=== PATIENT | female | born 1995 | race Caucasian/White ===

== ENCOUNTER 2021-04-23 15:06 | Emergency (ER) | payer SELFPAY ==
[2021-04-23 15:10] VITALS: BP 130/76; PULSE 99; RESP 18; TEMP 36.7; O2SAT 100
--- NOTE | 2021-04-23 15:18 | ECG_ITS ---
Measurements Intervals [place] Rate: 92 P: -8 CA: 104 QRS: 64 QRSD: 84 T: 55 QT: 349 QTc: 432 Interpretive Statements SINUS RHYTHM WITH SHORT CA INTERVAL BORDERLINE ECG Electronically Signed On 04-23-2021 17:17:36 CDT by Tomas Dozier D.O.
[2021-04-23 15:58] LABS: Add Urine Microscopic? YES; Appearance Urine Cloudy (Clear); Bacteria Urine Trace /hpf; Bilirubin Urine Negative (Negative); Blood Urine Negative (Negative); Color Urine Amber (Yellow); Glucose Urine UA Negative (Negative); Ketones Urine Trace mg/dL (Negative); Leukocyte Esterase Ur Negative LEU/UL (Negative); Mucus Urine Heavy /lpf; Nitrate Urine Negative (Negative); Protein Urine Negative (Negative); RBC Urine 0-2 /hpf (0-2); Specific Grav Ur 1.027 (1.001-1.035); Squamous Epithelial Cell Urine Many /hpf (Few); WBC Urine 0-3 /hpf
--- NOTE | 2021-04-23 20:16 | PC.NURSE ---
pt called to room no answer.
== END 2021-04-23 20:24 | disposition left against medical advice (07) ==
LOC: ANHED 20:19
PROVIDERS: Emergency Provider Emergency Medicine
DX: R11.2 Nausea with vomiting, unspecified (principal)
CPT/HCPCS: 81001; 93005; 99199